=== PATIENT | male | born 1945 | race Caucasian/White ===

== ENCOUNTER → 2023-07-25 13:41 | Outpatient (CLI) | payer OTHER, SELFPAY ==
--- NOTE | 2023-07-25 13:44 | DI.ECHO.S_ITS ---
[facility]---------+ [facility] +---------+ : : [address] : [address] [address] : : : : [id number] : : : : Phone: [phone] +---------+ Echocardiogram Report + + :Name: BANDAR PEREZ Study Date: 07/25/2023 Height: 67 in : :[facility] ReadingLocation: Weight: 186 lb : : Gender: Male BSA: 2.0 m2 : :: 1945 Age: 77 yrs BP: 149/83 mmHg: :Reason For Study: PERICARDIAL EFFUSION : :Ordering Physician: ETIENNE, : :JESSIKA Performed By: Geri Ray : :Referring: JESSIKA LE : + + Interpretation Summary Limited Echo: There is a small pericardial effusion noted. This has decreased from moderate on 05/15/2022. Procedure: The study quality was technically limited. The study quality was technically adequate. Comparison is made with the echocardiogram of 05/15/2022. The patient was in sinus bradycardia with heart rates between 48- 51 bpm during the exam. Left Ventricle: The left ventricle is normal in size and wall thickness. The ejection fraction is estimated to be 55-60%. Great Vessels: The IVC is of normal diameter and collapses greater than 50% with a sniff. This suggests a low right atrial pressure of 3 mm Hg. Pericardium/ Pleura There is a small pericardial effusion noted. There is no pleural effusion. MMode/2D Measurements & Calculations LVIDd: 4.7 cm IVC diam: 1.6 cm LVIDs: 3.1 cm FS: 34.9 % IVSd: 0.58 cm LVPWd: 0.75 cm LV [place]. diameter/BSA (cm/m^2): 2.4 LV sys. diameter/BSA (cm/m^2): 1.6 Reading Physician:04:44 PM
== END ==
PROVIDERS: PCP Family Medicine; Referring Provider Internal Medicine Cardiovascular Disease; Visit Provider Internal Medicine Cardiovascular Disease
DX: I31.39 Other pericardial effusion (noninflammatory) (principal)
CPT/HCPCS: 93307